=== PATIENT | female | born 1975 | race Caucasian/White ===

== ENCOUNTER → 2019-06-18 18:21 | Outpatient (CLI) | payer OTHER, SELFPAY ==
--- NOTE | ~2019-06-18 | MM_ITS ---
EXAMINATION: MM screening [facility] BI w mariann HISTORY: Screening mammogram TECHNIQUE: Craniocaudal and mediolateral oblique 3-D tomosynthesis images were obtained and synthetic 2-D images were generated. CAD analysis was submitted and interpreted. COMPARISON: 02/11/2018, 01/18/2017, 02/24/2015 BREAST PARENCHYMAL COMPOSITION: There are scattered areas of fibroglandular density. FINDINGS: There is no evidence of suspicious mass, calcification, or architectural distortion to sugg est malignancy in either breast. There has been no suspicious interval change. IMPRESSION: 1. No mammographic evidence of malignancy. 2. Recommend routine screening mammography in one year. BI-RADS Category 1: Negative Reviewed, dictated and finalized at location A. PREVENTION DETECTIVE
== END ==
DX: Z12.31 Encounter for screening mammogram for malignant neoplasm of breast (principal)
CPT/HCPCS: 77063; 77067

== ENCOUNTER → 2020-11-04 11:07 | Outpatient (CLI) | payer OTHER, SELFPAY ==
--- NOTE | ~2020-11-04 | MM_ITS ---
EXAMINATION: MM screening [facility] BI w mariann HISTORY: Screening mammogram TECHNIQUE: Craniocaudal and mediolateral oblique 3-D tomosynthesis images were obtained and synthetic 2-D images were generated. CAD analysis was submitted and interpreted. COMPARISON: 06/18/2019, 02/11/2018, 01/18/2017, 02/24/2015 BREAST PARENCHYMAL COMPOSITION: There are scattered areas of fibroglandular density. FINDINGS: There is no evidence of suspicious mass, calcification, or architectural distortion to sugg est malignancy in either breast. There has been no suspicious interval change. IMPRESSION: 1. No mammographic evidence of malignancy. 2. Recommend routine screening mammography in one year. BI-RADS Category 1: Negative Reviewed, dictated and finalized at location A.
== END ==
DX: Z12.31 Encounter for screening mammogram for malignant neoplasm of breast (principal)
CPT/HCPCS: 77063; 77067

== ENCOUNTER → 2023-06-20 11:39 | Outpatient (CLI) | payer OTHER, SELFPAY ==
--- NOTE | ~2023-06-20 | MM_ITS ---
EXAMINATION: MM screening [facility] BI w mariann HISTORY: Screening TECHNIQUE: Craniocaudal and mediolateral oblique 3-D tomosynthesis images were obtained and synthetic 2-D images were generated. CAD analysis was submitted and interpreted. COMPARISON: Comparison to multiple prior studies sequentially, with oldest reviewed study dated 01/29. BREAST PARENCHYMAL COMPOSITION: Not dense: There are scattered areas of fibroglandular density. FINDINGS: The right breast is stable without evidence for malignancy. There are developing masses in the upper outer quadrant of the left breast which are of scattered by fibroglandular tissue. IMPRESSION: 1. Developing left breast masses. 2. Additional mammographic views and possible breast ultrasound are recommended. BI-RADS Category 0: Incomplete: Needs additional imaging evaluation. Reviewed, dictated and finalized at location A. [employer] IMPRESSION: 1. Developing left breast masses. 2. Additional mammographic views and possible breast ultrasound are recommended . BI-RADS Category 0: Incomplete: Needs additional imaging evaluation.
== END ==
DX: Z12.31 Encounter for screening mammogram for malignant neoplasm of breast (principal); R92.8 Other abnormal and inconclusive findings on diagnostic imaging of breast
CPT/HCPCS: 77063; 77067

== ENCOUNTER 2023-09-10 10:34 | Outpatient (CLI) | payer OTHER, SELFPAY ==
--- NOTE | ~2023-09-10 | MMUS_ITS ---
EXAMINATION: MM diagnostic cha LT w mariann, US breast LT limited HISTORY: Developing mass reported in the upper outer quadrant left breast on June 20, 2023 screen ing mammogram examination TECHNIQUE: Additional 3-D tomosynthesis images of the left breast were performed and synthetic 2-D im ages were generated. CAD analysis was submitted and interpreted. High resolution upper outer quadrant left breast ultrasound was performed. COMPARISON: June 20, 2023 and June 18, 2019 bilateral screening mammogram examinations FINDINGS: MAMMOGRAPHIC FINDINGS: There is an approximately 6.5 mm circumscribed opacity in the posterior upper outer left breast, not present apparently on June 18, 2019. ULTRASOUND: 2:00 4 cm from nipple: Mildly irregular circumscribed approximately 7.5 x 6.7 x 6.8 mm solid mass is noted, without internal vascularity or posterior shadowing. Development of this mildly irregular emory d lesion in a 47-year-old is of concern. Ultrasound guided biopsy is recommended. IMPRESSION: 1. 7.5 mm mildly irregular solid mass at 2:00 4 cm from nipple 2. Ultrasound guided biopsy of left 2:00 breast lesion is recommended BI-RADS category 4, suspicious findings. Dr. Andujar telephoned the report and ultrasound guided biopsy recommendation for the left 2:00 solid 7. 5 mm mass on September 10, 2023 at 1240 hours to Nurse Shirley. Reviewed, dictated and finalized at location A. IMPRESSION: 1. 7.5 mm mildly irregular solid mass at 2:00 4 cm from nipple 2. Ultrasound guided biopsy of left 2:00 breast lesion is recommended BI-RADS category 4, suspicious findings. Dr. Andujar telephoned the report and ultrasound guided biopsy recommendation for the left 2:00 solid 7.5 mm mass on September 10, 2023 at 1240 hours to Nurse Gisella sarabia
[2023-09-10 13:56] LABS: Cholesterol 138 mg/dL (0-200); HDL Direct 44 mg/dL; Triglycerides 120 mg/dL (<150)
[2023-09-10 14:07] LABS: LDL Cholesterol Direct 81 mg/dL
== END 2023-09-10 10:35 | disposition home or self-care (01) ==
DX: Z01.419 Encounter for gynecological examination (general) (routine) without abnormal findings (principal); R92.8 Other abnormal and inconclusive findings on diagnostic imaging of breast; N63.20 Unspecified lump in the left breast, unspecified quadrant
CPT/HCPCS: 36415; 76642; 77061; 77065; 80061; G0279

== ENCOUNTER 2023-10-01 09:20 | Outpatient (CLI) | payer OTHER, SELFPAY ==
--- NOTE | ~2023-10-01 | MMUS_ITS ---
MM post biopsy invasive LT, US breast biopsy LT w image EXAMINATION: US GUIDED NEEDLE BIOPSY WITH VACUUM ASSISTANCE DATE: 10/01/2023 11:13 CDT INDICATION: Left breast mass seen on recent examination. Ultrasound-guided core biopsy is requested to evaluate for malignancy. TECHNIQUE AND FINDINGS: The risks and potential benefits of the procedure were discussed with the patient, and written inform ed consent was obtained. After sterile preparation of the left breast, 1% lidocaine was utilized for local anesthesia. 1% lidocaine with epinephrine was used for deep anesthesia. A 10G vacuum-assisted biopsy gun needle was advanced through to the outer edge of the region of inter est from a superior approach utilizing sonographic guidance. A total of 5 tissue core samples were o btained through the lesion. An Inrad tissue marker clip was then placed at the biopsy site. Hemostas is was achieved. The patient tolerated procedure well and there was no evidence of immediate complication. The patien t was given verbal instructions partly is from the department. Left breast mammograms to document ti ssue marker clip placement. The tissue samples were submitted to surgical pathology for histologic an alysis. IMPRESSION: 1. Successful ultrasound-guided vacuum-assisted biopsy of left breast mass with tissue marker placem ent. Please refer to pathology report for histologic analysis. Reviewed, dictated and finalized at location B. IMPRESSION: 1. Successful ultrasound-guided vacuum-assisted biopsy of left breast mass wit h tissue marker placement. Please refer to pathology report for histologic anal ysis.
== END 2023-10-01 09:21 | disposition home or self-care (01) ==
LOC: ANHIMG 09:22
DX: R92.8 Other abnormal and inconclusive findings on diagnostic imaging of breast (principal); N60.22 Fibroadenosis of left breast
CPT/HCPCS: 19083; 88305; A4648